=== PATIENT | female | born 1935 | race Caucasian/White ===

== ENCOUNTER → 2017-12-12 | Outpatient (CLI) | payer MEDICARE ==
[2016-04-02 09:41] VITALS: BP 140/59
[~2017-12-12] MED LIST: ALBU2.5V5 NEB; CELE200C PO; CHOL100014 PO; CLIN300C8 PO; CYAN100T PO; FURO-69 PO; MOME17SP NS; MULT-107 PO; REGADENOSON 0.4 MG/5 ML DISP.SYRIN. IV ONE; THYR60TA PO; VIT1CAPS12 PO
--- NOTE | 2017-12-12 12:20 | RAD ---
MR#: [id number] Date of Study: 12/12/2017 Ordering Physician: KIRK NGUYEN Referring Physician: JORGE SCHAFEFR Tech: APPROVED REPORT Test Type: Pharmacological Stress Nurse/Tech: Tiffani Ordoñez R.N. Test Indications: family hist. , SOB Cardiac History: Family history, Hypertension, TIA's Medications: See Electronic Medical Record Medical History: See Electronic Medical Record Resting ECG: NSR with RBBB Resting Heart Rate: 65 bpm Resting Blood Pressure: 140/69mmHg Pretest Chest Pain: No chest pain Nurse/Tech Notes S1S2, lungs sound clear Consent: The procedure was explained to the patient in lay terms. Informed consent was witnessed. Adam eout was entered into [employer]. History and Stress Test performed by Sheela ZieglerNAmmon Pharm. Details Pharmacologic stress testing was performed using 0.4mg per 5ml of regadenoson given intravenously ove r 7-10 seconds. Stress Symptoms Dyspnea POST EXERCISE Reason for Termination: Infusion complete Target HR: 119 Max HR: 82 bpm Max Blood Pressure: 145/67mmHg Blood Pressure response to exercise: Normal blood pressure response during stress. Chest Pain: No. Arrhythmia: No. ST Change: No. INTERPRETATION Stress EKG Conclusion: The resting EKG shows a sinus rhythm with a left anterior fascicular block and a right bundle branch block. The stress EKG showed no evidence of stressed induced ischemia or significant arrhythmias. No imaging was performed. Abnormal baseline EKG but no EKG evidence of stressed induced ischemia. Signed by : Dom Obregon MD Electronically Approved : 12/12/2017 12:19:45
== END | disposition home or self-care (01) ==
LOC: NM 11:58
PROVIDERS: ATTEND Family Medicine
DX: R06.02 Shortness of breath (principal); J44.9 Chronic obstructive pulmonary disease, unspecified; I10 Essential (primary) hypertension; Z88.8 Allergy status to other drugs, medicaments and biological substances; Z87.820 Personal history of traumatic brain injury; Z82.49 Family history of ischemic heart disease and other diseases of the circulatory system
CPT/HCPCS: 93017; J2785

== ENCOUNTER 2020-05-12 17:39 | Inpatient (IN) | payer MEDICARE ==
[~2020-05-12] VITALS: Ht 152.4 cm; Wt 76.6 kg
[2020-05-12 17:30] VITALS: BP 181/73
[~2020-05-12 17:39] MED LIST changes: -CLIN300C8 PO; +CLIN300C9 PO; -CYAN100T PO; +CYAN100T21 PO; -REGADENOSON 0.4 MG/5 ML DISP.SYRIN. IV ONE
[2020-05-12] MEDS ORDERED: BRIN8DRO OP (18:34)
[2020-05-12] MEDS ORDERED: DONE10TA7 PO (18:34)
[2020-05-12] MEDS ORDERED: LATA2.5D2 EACHEYE (18:34)
[2020-05-12 19:00] VITALS: BP 156/56
--- NOTE | 2020-05-12 20:39 | PDOC1 ---
History and Physical Date of Service: DOS: DATE: 05/12/20 TIME: 20:23 Chief Complaint: Chief Complain: Passing out History of Present Illness: HPI: Patient is a 84-year-old female with past medical history of asthma, dyslipidemia, hypothyroidism and remote history of TIA presents to the ED for possible stroke. Patient was transferred over from [place] [facility] for neuro evaluation patient stated that she just did not feel right and she felt a burst in her head and that she fell forward on her face. She states that she felt on the floor however she does not appear to have any contusions on her head. Patient does report LOC but was able to get up afterwards and she felt dizzy. Patient did complain of right-sided neck pain and arm pain and weakness. Does not have a headache. Patient also stated has pain on her right hip down to her leg. During my interview, I am completed by her daughter and son who both have DPOA. Son stated that in the past week patient has been moving a lot of furniture because she wants to keep the place clean and not be messy. Son believes this might have triggered the patient to be having muscle soreness and weakness. Patient is afraid of getting old and is obsessed with trying to stay young and healthy. Past Medical/Surgical History: PMH/PSH: Past medical history: Asthma, dyslipidemia, hypothyroidism, TIA Past surgical history: Cholecystectomy, hysterectomy Allergies: Allergies: Coded Allergies: Penicillins (Verified Allergy, Intermediate, 02/28/16) atorvastatin (Verified Allergy, Intermediate, 02/28/16) cephalexin (Verified Allergy, Intermediate, 02/28/16) ciprofloxacin (Verified Allergy, Intermediate, 02/28/16) clindamycin (Verified Allergy, Intermediate, 02/28/16) diazepam (Verified Allergy, Intermediate, 02/28/16) tramadol (Verified Allergy, Intermediate, 02/28/16) Family History: Family History: Reviewed with no relevant findings Social History: Social History: Denies alcohol, drug or tobacco abuse Current Medications: Current Medications Current Medications Aspirin (Ecotrin) 81 mg DAILYWBKFT PO ; Start 05/12/20 at 21:00 Enoxaparin Sodium (Lovenox 40mg Syringe) 40 mg Q24H SQ ; Start 05/12/20 at 21:00 Active Scripts Active Reported Xalatan (Latanoprost) 2.5 Ml Drops 1 Drop EACHEYE QHS Donepezil Hcl 10 Mg Tablet 1 Tab PO DAILY Simbrinza 1%-0.2% Eye Drops (Brinzolamide/Brimonid Tart) 8 Ml Drops.susp 8 Ml OP BID ROS: Review of Systems Review of System REVIEW OF SYSTEMS: GENERAL: Denies weakness SKIN: No bruising, hair changes or rashes. EYES: No blurred, double or loss of vision. NOSE AND THROAT: No history of nosebleeds, hoarseness or sore throat. HEART: No history of palpitations, chest pain or shortness of breath on exertion. LUNGS: Denies cough, hemoptysis, wheezing or shortness of breath. GASTROINTESTINAL: Denies changes in appetite, nausea, vomiting, diarrhea or constipation. GENITOURINARY: No history of frequency, urgency, hesitancy or nocturia. NEUROLOGIC: Denies history of numbness, tingling, or tremor. PSYCHIATRIC: No history of panic, anxiety or depression. ENDOCRINE: No history of heat or cold intolerance, polyuria or polydipsia. EXTREMITIES: Denies joint pain, pain on walking or stiffness. Physical Exam: Vital Signs: Vital Signs Date Time Temp Pulse Resp B/P (MAP) Pulse Ox O2 Delivery O2 Flow Rate FiO2 05/12/20 19:00 97.8 61 20 156/56 (89) 95 Room Air 97.8 Physcial Exam: GEN: No apparent distress. Alert and oriented HEENT: Normal cephalic, atraumatic, external auditory canals are patent EYES: Extraocular muscles are intact, pupil are equally round and reactive to light and accommodation MUSCULOSKELETAL: Well developed , well nourished, good range of motion ENDOCRINE: No thyromegaly was palpated LYMPHATICS: No cervical chain or axillary nodes were noted HEMATOPOIETIC: No bruising NECK: Supple, no JVD, no thyromegaly was noted LUNGS: Clear to auscultation in all lung kinney without rhonchi or wheezing HEART: RRR, S!, S2 present. Peripheral pulses intact, no obvious murmurs noted ABDOMEN: Soft, nontender. Positive bowel sounds, no organomegaly, normal bowel sounds EXTREMITIES: Without clubbing, cyanosis, or edema. Pedal pulses intact. Negative Homans sign NEUROLOGIC: Normal speech and tone. A&O x 3, moves all extremities, no obvious focal deficits PSYCHIATRIC: Normal affect, normal mood. Stable SKIN: No ulcerations or rashes, good skin turgor, no jaundice VASCULAR: Good capillary refill, neurovascular bundle appears to be intact Labs: Labs: Pending repeat labs Images: Images CT head was negative for any acute intracranial abnormalities CXR Impression: 1. No acute cardiopulmonary process. CTA of the head and neck Partially calcified atherosclerotic plaque involving the greater than left cavernous sinus and subarachnoid internal carotid arteries resulting in a 50 to 69% stenosis on the right and less than 50% stenosis on the left. There is also mild atherosclerotic plaque involving the carotid bifurcations with less than 50% stenosis. Partially calcified atherosclerotic plaque involving the origin and distal aspects of the right vertebral artery, resulting in 50 to 69% stenosis of the origin and less than 50% stenosis within its distal aspect No evidence of arterial occlusion or aneurysm. Multilevel degenerative changes involving the cervical spine there is no acute osseous finding. Assessment/Plan Assessment/Plan Acute TIA Bilateral carotid stenosis Onset of symptoms > 4.5 hours NIH 2 Admit to medicine for further workup Neuro consult Pending MRI brain, TTE continue telemonitoring for at least 24 hours contine IVF while NPO maintain normoglycemia with goals of 140-180 permissive HTN with goals between 140-180/90-105 for at least 24 hours if tPA administered, maintain BP goals < 180/105 for at least 24 hours continue ASA 81 daily within 48 hours continue high intensity statins, if tolerable pending PT/OT/speech Justifications for Admission Other Justification MONA VILLATORO MD May 12, 2020 20:39
[2020-05-12] MEDS: ASPIRIN ENTERIC COATED 81 MG TABLET.DR. PO SCH (20:41)
[2020-05-12] MEDS: ENOXAPARIN 40 MG/0.4 ML SYRINGE. SQ SCH (20:41)
[2020-05-12 23:00] VITALS: BP 139/51
[2020-05-13] VITALS (10 sets, daily range): BP systolic 131–166; BP diastolic 54–72
[2020-05-13] MEDS: ASPIRIN ENTERIC COATED 81 MG TABLET.DR. PO SCH (06:18)
[2020-05-13 06:31] LABS: BASO % 1 % (0-3); EOS # 0.1 x10^3/uL (0.0-0.7); EOS % 2 % (0-3); LYMPH # 1.7 x10^3/uL (1.0-4.8); LYMPH % 39 % (24-48); MEAN CORPUSCULAR HEMOGLOBIN 29 pg (25-35); MEAN CORPUSCULAR HGB CONC 33 g/dL (31-37); MEAN CORPUSCULAR VOLUME 89 fL (79-100); MONO # 0.4 x10^3/uL (0.0-1.1); MONO % 9 % (0-9); NEUT # 2.1 x10^3/uL (1.8-7.7); NEUT % 49 % (31-73); PLATELET COUNT 219 x10^3/uL (140-400); RED CELL DISTRIBUTION WIDTH 14.6 % (11.5-14.5); WHITE BLOOD COUNT 4.3 x10^3/uL (4.0-11.0)
[2020-05-13 06:54] LABS: ALBUMIN 3.3 g/dL (3.4-5.0); ALBUMIN/GLOBULIN RATIO 0.9 (1.0-1.7); CALCIUM 8.9 mg/dL (8.5-10.1); CREATININE 0.6 mg/dL (0.6-1.0); GFR 95.7; POTASSIUM 3.9 mmol/L (3.5-5.1); TOTAL BILIRUBIN 0.4 mg/dL (0.2-1.0)
--- NOTE | 2020-05-13 11:14 | PDOC ---
[facility] PROGRESS NOTE Date of Service DOS: DATE: 05/13/20 TIME: 11:07 Chief Complaint Chief Complaint Right side weakness Syncope History of Present Illness History of Present Illness 05/13/2020 Patient is seen and examined. Patient is able to sit comfortably. Discussed with her daughter about patient's condition. Her daughter wants the patient to try Statin even though patient has documented allergy with unknown reaction. Patient case's is discussed with RN and chart is review CT shows Partially calcified atherosclerotic plaque involving the greater than left cavernous sinus and subarachnoid internal carotid arteries resulting in a 50 to 69% stenosis on the right and less than 50% stenosis on the left. There is also mild atherosclerotic plaque involving the carotid bifurcations with less than 50% stenosis. Partially calcified atherosclerotic plaque involving the origin and distal aspects of the right vertebral artery, resulting in 50 to 69% stenosis of the origin and less than 50% stenosis within its distal aspect No evidence of arterial occlusion or aneurysm. Multilevel degenerative changes involving the cervical spine there is no acute osseous finding. Vitals/I&O Vitals/I&O: Vital Signs Date Time Temp Pulse Resp B/P (MAP) Pulse Ox O2 Delivery O2 Flow Rate FiO2 05/13/20 08:00 Room Air 05/13/20 07:00 98.7 60 20 149/58 (88) 94 98.7 I & O 05/12/20 05/12/20 05/13/20 15:00 23:00 07:00 Intake Total 200 ml Output Total 0 ml Balance 200 ml Physical Exam General: Alert, Oriented X3, Cooperative, mild distress, Other (Notice left face drooping) Heart: Regular rate, Normal S1, Normal S2 Lungs: Clear Abdomen: Normal bowel sounds Extremities: No clubbing Skin: No rashes Labs Labs: Laboratory Tests Test 05/13/20 06:13 White Blood Count 4.3 x10^3/uL (4.0-11.0) Red Blood Count 4.50 x10^6/uL (3.50-5.40) Hemoglobin 13.0 g/dL (12.0-15.5) Hematocrit 40.0 % (36.0-47.0) Mean Corpuscular Volume 89 fL (79-100) Mean Corpuscular Hemoglobin 29 pg (25-35) Mean Corpuscular Hemoglobin Concent 33 g/dL (31-37) Red Cell Distribution Width 14.6 % (11.5-14.5) Platelet Count 219 x10^3/uL (140-400) Neutrophils (%) (Auto) 49 % (31-73) Lymphocytes (%) (Auto) 39 % (24-48) Monocytes (%) (Auto) 9 % (0-9) Eosinophils (%) (Auto) 2 % (0-3) Basophils (%) (Auto) 1 % (0-3) Neutrophils # (Auto) 2.1 x10^3/uL (1.8-7.7) Lymphocytes # (Auto) 1.7 x10^3/uL (1.0-4.8) Monocytes # (Auto) 0.4 x10^3/uL (0.0-1.1) Eosinophils # (Auto) 0.1 x10^3/uL (0.0-0.7) Basophils # (Auto) 0.0 x10^3/uL (0.0-0.2) Sodium Level 140 mmol/L (136-145) Potassium Level 3.9 mmol/L (3.5-5.1) Chloride Level 103 mmol/L (98-107) Carbon Dioxide Level 30 mmol/L (21-32) Anion Gap 7 (6-14) Blood Urea Nitrogen 13 mg/dL (7-20) Creatinine 0.6 mg/dL (0.6-1.0) Estimated GFR (Cockcroft-Gault) 95.7 BUN/Creatinine Ratio 22 (6-20) Glucose Level 96 mg/dL (70-99) Calcium Level 8.9 mg/dL (8.5-10.1) Total Bilirubin 0.4 mg/dL (0.2-1.0) Aspartate Amino Transf (AST/SGOT) 14 U/L (15-37) Alanine Aminotransferase (ALT/SGPT) 17 U/L (14-59) Alkaline Phosphatase 64 U/L (46-116) Total Protein 7.0 g/dL (6.4-8.2) Albumin 3.3 g/dL (3.4-5.0) Albumin/Globulin Ratio 0.9 (1.0-1.7) Review of Systems Review of Systems: Patient has difficult speaking Patient complains right arm weakness Patient complains of headache Patient denies nausea or vomiting Assessment and Plan Assessmemt and Plan Assessment: Acute TIA Bilateral Carotid Stenosis Stroke Plan: 1) Awaiting MRI head today 2) Awaiting further Neurologist input 3) Continue speech therapy 4) Continue pvc monitor 5) Continue PT/OT 6) Continue DVT prophylaxis 7) Start patient on 10 mg SimvasStatin 8) Order SNU evaluation 9) Full code Comment Review of Relevant I have reviewed the following items [place] (where applicable) has been applied. Medications: Current Medications Medications (Trade) Dose Ordered Sig/Juhi Route PRN Reason Start Time Stop Time Status Last Admin Dose Admin Aspirin (Ecotrin) 81 mg DAILYWBKFT PO 05/12/20 21:00 05/13/20 06:18 Enoxaparin Sodium (Lovenox 40mg Syringe) 40 mg Q24H SQ 05/12/20 21:00 05/12/20 20:41 Justifications for Admission Other Justification MELISSA LAUREN III DO May 13, 2020 11:14
--- NOTE | 2020-05-13 11:21 | RAD ---
EXAM: Brain MRI without contrast. HISTORY: Right-sided weakness. Stroke. TECHNIQUE: Multiplanar, multisequence magnetic resonance imaging of the brain was performed without c ontrast. COMPARISON: 05/12/2020 FINDINGS: There is no restricted diffusion to suggest acute or subacute infarction. There is no susce ptibility effect to suggest hemorrhage. There is no mass effect or midline shift. There is no hydroce phalus. There is cerebral volume loss. There are scattered small focal and confluent areas of signal change w ithin the cerebral white matter, likely due to chronic small vessel disease in a patient of this age. There is evidence of lens surgery. There is a tiny left maxillary sinus mucous retention cyst. There is minimal right mastoid fluid. There are normal flow voids within the cerebral vessels. IMPRESSION: 1. No acute intracranial finding. 2. Bilateral cerebral white matter changes, likely due to chronic small vessel disease. 3. Cerebral volume loss. Electronically signed by: Ching Israel MD (05/13/2020 11:19 AM) [id number]
[2020-05-13] MEDS: ACETAMINOPHEN 325 MG TABLET. PO PRN ×2 (12:55→20:37)
--- NOTE | 2020-05-13 13:57 | PDOC2 ---
NEUROLOGY CONSULT Date of Service DOS: DATE: 05/13/20 TIME: 13:52 Reason for Consult Reason for Consult: Possible stroke Referring Physician Referring Physician: Dr. Lozano Source Source: Chart review, Patient History of Present Illness History of Present Illness The patient is an 84-year-old right-handed female who lives alone, presented to the [facility] emergency department as code stroke. She fell and hit her head, does not think she was knocked out. She does not know why she fell, though. She has had a feeling of a burst in her head, dizziness, headache, and trouble moving the right side. There is no prior history of stroke or seizure, but she says that she has had a mini stroke in the past. On closer questioning, she describes a dizzy spell. There is no history of full-blown stroke, seizure, or other significant head injury. Patient has noticed some memory loss over the last several years. She has some trouble walking. In the [facility] emergency department, [facility] transfer center was consulted, they did not think she needed a transfer to their facility. Past Medical History Cardiovascular: Hyperlipidemia Pulmonary: Asthma CENTRAL NERVOUS SYSTEM: TIA (?) GI: GERD Endocrine: Hypothyroidism Past Surgical History Past Surgical History: Cholecystectomy, Hysterectomy Family History Family History: CVA Social History Social History , lives alone, rare alcohol, no tobacco Current Medications Current Medications Current Medications Aspirin (Ecotrin) 81 mg DAILYWBKFT PO Last administered on 05/13/20at 06:18; Start 05/12/20 at 21:00 Enoxaparin Sodium (Lovenox 40mg Syringe) 40 mg Q24H SQ Last administered on 05/12/20at 20:41; Start 05/12/20 at 21:00 Acetaminophen (Tylenol) 325 mg Q4HRS PRN PO MILD PAIN / TEMP > 100.3'F Last administered on 05/13/20at 12:55; Start 05/13/20 at 09:15 Simvastatin (Zocor) 5 mg QHS PO ; Start 05/13/20 at 21:00 Active Scripts Active Reported Xalatan (Latanoprost) 2.5 Ml Drops 1 Drop EACHEYE QHS Donepezil Hcl 10 Mg Tablet 1 Tab PO DAILY Simbrinza 1%-0.2% Eye Drops (Brinzolamide/Brimonid Tart) 8 Ml Drops.susp 8 Ml OP BID Allergies Allergies: Coded Allergies: Penicillins (Verified Allergy, Intermediate, 02/28/16) atorvastatin (Verified Allergy, Intermediate, 02/28/16) cephalexin (Verified Allergy, Intermediate, 02/28/16) ciprofloxacin (Verified Allergy, Intermediate, 02/28/16) clindamycin (Verified Allergy, Intermediate, 02/28/16) diazepam (Verified Allergy, Intermediate, 02/28/16) tramadol (Verified Allergy, Intermediate, 02/28/16) ROS Review of System Negative for fever, chills, weight loss, shortness of breath, chest pain, indigestion, hematochezia, melena, and dysuria. Full 14-point review of systems is negative. Physical Exam Physical Examination General: Well-developed, well-nourished white female in no acute distress HEENT: Normocephalic, some facial ecchymoses. Temporal arteriespulsatile and nontender. Neck: Supple without bruit, no meningismus Musculoskeletal: Stability:see neurologic. Gait exam:see neurologic. Tone:see neurologic.Strength:see neurologic. Neurological: Mental Status:intact, orientation, memory, attention span/concentration, language, fund of knowledge normal. Cranial Nerves:Pupils equal and reactive to light, extraocular movements areintact, visual kinney are full to confrontation. Facial sensation is normal. There is no facial asymmetry. Vestibulo-ocular reflex is intact. Palate elevates and tongue protrudes in midline. All other cranial related problems are negative except as mentioned before.Reflexes:1+ and symmetric with flexor plantar responses. Motor:She is able to develop 5/5 strength with normal tone and bulk, but is splinting the right shoulder and right hip due to pain. Coordination:Finger-nose finger and [id number] testing are normal. Rapid alternating movements and fine finger movements are intact. Gait:Arthritic. Sensory:Normal pinprick, vibration, light touch, proprioception. Vitals VITALS Vital Signs Date Time Temp Pulse Resp B/P (MAP) Pulse Ox O2 Delivery O2 Flow Rate FiO2 05/13/20 11:00 97.8 55 20 144/54 (84) 93 Room Air 97.8 Labs Labs Laboratory Tests Test 05/13/20 06:13 White Blood Count 4.3 x10^3/uL (4.0-11.0) Red Blood Count 4.50 x10^6/uL (3.50-5.40) Hemoglobin 13.0 g/dL (12.0-15.5) Hematocrit 40.0 % (36.0-47.0) Mean Corpuscular Volume 89 fL (79-100) Mean Corpuscular Hemoglobin 29 pg (25-35) Mean Corpuscular Hemoglobin Concent 33 g/dL (31-37) Red Cell Distribution Width 14.6 % (11.5-14.5) Platelet Count 219 x10^3/uL (140-400) Neutrophils (%) (Auto) 49 % (31-73) Lymphocytes (%) (Auto) 39 % (24-48) Monocytes (%) (Auto) 9 % (0-9) Eosinophils (%) (Auto) 2 % (0-3) Basophils (%) (Auto) 1 % (0-3) Neutrophils # (Auto) 2.1 x10^3/uL (1.8-7.7) Lymphocytes # (Auto) 1.7 x10^3/uL (1.0-4.8) Monocytes # (Auto) 0.4 x10^3/uL (0.0-1.1) Eosinophils # (Auto) 0.1 x10^3/uL (0.0-0.7) Basophils # (Auto) 0.0 x10^3/uL (0.0-0.2) Sodium Level 140 mmol/L (136-145) Potassium Level 3.9 mmol/L (3.5-5.1) Chloride Level 103 mmol/L (98-107) Carbon Dioxide Level 30 mmol/L (21-32) Anion Gap 7 (6-14) Blood Urea Nitrogen 13 mg/dL (7-20) Creatinine 0.6 mg/dL (0.6-1.0) Estimated GFR (Cockcroft-Gault) 95.7 BUN/Creatinine Ratio 22 (6-20) Glucose Level 96 mg/dL (70-99) Calcium Level 8.9 mg/dL (8.5-10.1) Total Bilirubin 0.4 mg/dL (0.2-1.0) Aspartate Amino Transf (AST/SGOT) 14 U/L (15-37) Alanine Aminotransferase (ALT/SGPT) 17 U/L (14-59) Alkaline Phosphatase 64 U/L (46-116) Total Protein 7.0 g/dL (6.4-8.2) Albumin 3.3 g/dL (3.4-5.0) Albumin/Globulin Ratio 0.9 (1.0-1.7) Laboratory Tests Test 05/13/20 06:13 White Blood Count 4.3 x10^3/uL (4.0-11.0) Red Blood Count 4.50 x10^6/uL (3.50-5.40) Hemoglobin 13.0 g/dL (12.0-15.5) Hematocrit 40.0 % (36.0-47.0) Mean Corpuscular Volume 89 fL (79-100) Mean Corpuscular Hemoglobin 29 pg (25-35) Mean Corpuscular Hemoglobin Concent 33 g/dL (31-37) Red Cell Distribution Width 14.6 % (11.5-14.5) Platelet Count 219 x10^3/uL (140-400) Neutrophils (%) (Auto) 49 % (31-73) Lymphocytes (%) (Auto) 39 % (24-48) Monocytes (%) (Auto) 9 % (0-9) Eosinophils (%) (Auto) 2 % (0-3) Basophils (%) (Auto) 1 % (0-3) Neutrophils # (Auto) 2.1 x10^3/uL (1.8-7.7) Lymphocytes # (Auto) 1.7 x10^3/uL (1.0-4.8) Monocytes # (Auto) 0.4 x10^3/uL (0.0-1.1) Eosinophils # (Auto) 0.1 x10^3/uL (0.0-0.7) Basophils # (Auto) 0.0 x10^3/uL (0.0-0.2) Sodium Level 140 mmol/L (136-145) Potassium Level 3.9 mmol/L (3.5-5.1) Chloride Level 103 mmol/L (98-107) Carbon Dioxide Level 30 mmol/L (21-32) Anion Gap 7 (6-14) Blood Urea Nitrogen 13 mg/dL (7-20) Creatinine 0.6 mg/dL (0.6-1.0) Estimated GFR (Cockcroft-Gault) 95.7 BUN/Creatinine Ratio 22 (6-20) Glucose Level 96 mg/dL (70-99) Calcium Level 8.9 mg/dL (8.5-10.1) Total Bilirubin 0.4 mg/dL (0.2-1.0) Aspartate Amino Transf (AST/SGOT) 14 U/L (15-37) Alanine Aminotransferase (ALT/SGPT) 17 U/L (14-59) Alkaline Phosphatase 64 U/L (46-116) Total Protein 7.0 g/dL (6.4-8.2) Albumin 3.3 g/dL (3.4-5.0) Albumin/Globulin Ratio 0.9 (1.0-1.7) Images Images Brain MRI without contrast. HISTORY: Right-sided weakness. Stroke. TECHNIQUE: Multiplanar, multisequence magnetic resonance imaging of the brain was performed without contrast. COMPARISON: 05/12/2020 FINDINGS: There is no restricted diffusion to suggest acute or subacute infarction. There is no susceptibility effect to suggest hemorrhage. There is no mass effect or midline shift. There is no hydrocephalus. There is cerebral volume loss. There are scattered small focal and confluent areas of signal change within the cerebral white matter, likely due to chronic small vessel disease in a patient of this age. There is evidence of lens surgery. There is a tiny left maxillary sinus mucous retention cyst. There is minimal right mastoid fluid. There are normal flow voids within the cerebral vessels. IMPRESSION: 1. No acute intracranial finding. 2. Bilateral cerebral white matter changes, likely due to chronic small vessel disease. 3. Cerebral volume loss. CT ANGIOGRAPHY HEAD AND NECK EXAM: Head angiogram of the head and neck with intravenous contrast; cervical spine CT without contrast. HISTORY: Neck pain. TECHNIQUE: Computed tomographic images of the head and neck were obtained following the administration of contrast and noncontrast images of the cervical spine were obtained. 3-dimensional maximum intensity projection images were obtained. *One or more of the following individualized dose reduction techniques were utilized for this examination: 1. Automated exposure control. 2. Adjustment of the mA and/or kV according to patient size. 3. Use of iterative reconstruction technique. COMPARISON: None. FINDINGS: The visualized aortic arch is normal in caliber. There is calcified atherosclerotic plaque involving the aortic arch and arch great vessels. The origins of the innominate and left common carotid arteries are excluded from the [id number]. There is no significant stenosis at the origin of the right subclavian or common carotid artery or left subclavian artery. There is calcified atherosclerotic plaque at the origin of the right vertebral artery, with 50-69 percent stenosis. There is calcified atherosclerotic plaque within the distal right vertebral artery resulting in 50 percent stenosis and slight relative decreased caliber of the right vertebral artery extending to the basilar artery. The vertebral arteries are otherwise codominant and widely patent. There is calcified atherosclerotic plaque involving the right carotid bulb and origin of the right internal carotid artery, with less than 25 percent stenosis. There is minimal calcified plaque at the left carotid bulb and origin of the left internal carotid artery, without stenosis. There is calcified atherosclerotic plaque within the cavernous and supraclinoid internal carotid arteries. This results in less than 50 percent stenosis on the left and 50-69 percent stenosis on the right. The basilar artery is widely patent. The posterior communicating arteries are likely developmentally absent. There is a tiny communicating artery. There is no aneurysm. There is no vascular malformation. There is no suspicious enhancing lesion. There is mild cerebral atrophy. There is decreased attenuation within the cerebral white matter, most commonly due to chronic small vessel disease in patients of this age. There is evidence of lens surgery. There is a small left maxillary sinus mucous retention cyst. The mastoid air cells are clear. The parotid and submandibular glands are unremarkable. There is a small calcification along the anterior aspect of the right thyroid gland. No thyroid nodule is seen. There is no neck lymphadenopathy. The airways midline and mildly patent. The lung apices are unremarkable. There is minimal anterolisthesis of C3 on C4 and C4 on C5. There is degenerative endplate remodeling throughout the cervical and visualized thoracic spine, primarily at C6-C7. There is disc space narrowing, vacuum phenomenon and Schmorl's node formation at this level. There is multilevel facet arthropathy. The right facet joints at C2-C3 are fused. There is no fracture or suspicious osseous lesion. At C2-C3, there is mild right facet arthropathy. There is no stenosis. At C3-C4, there is a shallow posterior central to left paracentral disc protrusion. There is moderate right greater than left facet arthropathy. There is no stenosis. At C4-C5, there is a disc bulge. There is severe right and moderate left facet arthropathy. There is no stenosis. At C5-C6, there is a disc bulge and endplate remodeling. There is severe right and moderate left facet arthropathy. There is left uncovertebral arthropathy. There is no stenosis. At C6-C7, there is a disc bulge and endplate osteophytosis. There is mild bilateral facet arthropathy. There is uncovertebral arthropathy. There is no stenosis. IMPRESSION: 1. Partially calcified atherosclerotic plaque involving the greater than left cavernous and supraclinoid internal carotid arteries, resulting in 50-69 percent stenosis on the right and less than 50 percent stenosis on the left. There is also mild atherosclerotic plaque involving the carotid bifurcations with less than 50 percent stenosis. 2. Partially calcified atherosclerotic plaque involving the origin and distal aspects of the right vertebral artery, resulting in 50-69 percent stenosis of the origin and less than 50 percent stenosis within its distal aspect. 3. No evidence of arterial occlusion or aneurysm. 4. Multilevel degenerative change involving the cervical spine, described above. There is no acute osseous finding. CT scan of the head without contrast 05/12/20 Clinical History: Headache. Right sided pain. Code stroke. Technique: Unenhanced, contiguous, 5 mm axial sections were obtained through the head. One or more of the following individualized dose reduction techniques were util ized for this study: 1. Automated exposure control. 2. Adjustment of the mA and/or kV according to patient size. 3. Use of iterative reconstruction technique. Findings: There is generalized parenchymal atrophy. Areas of decreased attenuation are seen within the periventricular and subcortical white matter of both cerebral hemispheres consistent with areas of small vessel ischemic disease. No acute parenchymal abnormality is seen. No extra-axial fluid collection is noted. No skull fracture is seen. Impression: No acute intracranial abnormality is seen. 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 ZULEIMA PERRY MD May 13, 2020 13:57
--- NOTE | 2020-05-13 14:35 | RAD ---
EXAM: Right shoulder, 3 views; pelvis and right hip, 2 views. HISTORY: Pain. COMPARISON: None. FINDINGS: Right shoulder: 3 views of the right shoulder obtained. The exam is limited due to image projection a nd limited range of motion. There is no acute fracture, dislocation or subluxation. There is decrease d subacromial space which may be projectional. Pelvis and right hip: A frontal view the pelvis and 2 views of the right hip are obtained. There is n o fracture, dislocation or subluxation. IMPRESSION: 1. Limited evaluation of the right shoulder due to image projection and limited range of motion. Ther e is no convincing acute fracture. 2. No acute finding involving the pelvis and right hip. Electronically signed by: Ching Israel MD (05/13/2020 2:33 PM) [id number]
[2020-05-13] MEDS: ENOXAPARIN 40 MG/0.4 ML SYRINGE. SQ SCH (20:38)
[2020-05-13] MEDS ORDERED: SIMVASTATIN 10 MG TABLET PO SCH (21:00)
[2020-05-14 03:00] VITALS: BP 164/63
[2020-05-14 07:00] VITALS: BP 141/57
[2020-05-14] MEDS: ASPIRIN ENTERIC COATED 81 MG TABLET.DR. PO SCH (08:25)
[2020-05-14] MEDS: DONEPEZIL HCL 10 MG TABLET. PO SCH (08:25)
[2020-05-14] MEDS: ACETAMINOPHEN 325 MG TABLET. PO PRN (10:15)
[2020-05-14 11:00] VITALS: BP 146/56
--- NOTE | 2020-05-14 11:19 | PDOC ---
[facility] PROGRESS NOTE Date of Service DOS: DATE: 05/14/20 TIME: 11:17 Chief Complaint Chief Complaint Right side weakness Syncope History of Present Illness History of Present Illness 05/13/2020 Patient is seen and examined. Patient is able to sit comfortably. Discussed with her daughter about patient's condition. Her daughter wants the patient to try Statin even though patient has documented allergy with unknown reaction. Patient case's is discussed with RN and chart is review CT shows Partially calcified atherosclerotic plaque involving the greater than left cavernous sinus and subarachnoid internal carotid arteries resulting in a 50 to 69% stenosis on the right and less than 50% stenosis on the left. There is also mild atherosclerotic plaque involving the carotid bifurcations with less than 50% stenosis. Partially calcified atherosclerotic plaque involving the origin and distal aspects of the right vertebral artery, resulting in 50 to 69% stenosis of the origin and less than 50% stenosis within its distal aspect No evidence of arterial occlusion or aneurysm. Multilevel degenerative changes involving the cervical spine there is no acute osseous finding. 05/14/2020 Patient is seen and examined with her daughter in the room Patient is comfortable Patient's case is discussed with RN MRI finding 1. No acute intracranial finding. 2. Bilateral cerebral white matter changes, likely due to chronic small vessel disease. 3. Cerebral volume loss. Vitals/I&O Vitals/I&O: Vital Signs Date Time Temp Pulse Resp B/P (MAP) Pulse Ox O2 Delivery O2 Flow Rate FiO2 05/14/20 07:00 98.7 57 20 141/57 (85) 95 Room Air 98.7 I & O 05/13/20 05/13/20 05/14/20 15:00 23:00 07:00 Intake Total 600 ml 700 ml 500 ml Balance 600 ml 700 ml 500 ml Physical Exam General: Alert, Oriented X3, Cooperative, mild distress, Other (Notice left face drooping) Heart: Regular rate, Normal S1, Normal S2 Lungs: Clear, Other (No wheezes or crackles) Abdomen: Normal bowel sounds, No tenderness Extremities: No clubbing, No cyanosis Skin: No rashes, No significant lesion Review of Systems Review of Systems: Affirms headache, improved from yesterday Denies nausea or vomiting Assessment and Plan Assessmemt and Plan Assessment: 1. Fall with concussion per neurologist 2. Acute TIA 3. Bilateral Carotid Stenosis 4. Stroke Plan: 1. Continue PT/OT 2. Continue speech therapy 3. Continue cardiac monitoring 4. DVT prophylaxis 5. Full code 6. Appreciate neurology input 7. Continue home meds Comment Review of Relevant I have reviewed the following items [place] (where applicable) has been applied. Medications: Current Medications Medications (Trade) Dose Ordered Sig/Juhi Route PRN Reason Start Time Stop Time Status Last Admin Dose Admin Simvastatin (Zocor) 5 mg QHS PO 05/13/20 21:00 05/13/20 20:37 Donepezil HCl (Aricept) 10 mg DAILY PO 05/14/20 09:00 05/14/20 08:25 Justifications for Admission Other Justification MELISSA LAUREN III DO May 14, 2020 11:19
[2020-05-14] MEDS: amLODIPine BESYLATE 5 MG TABLET PO SCH (12:04)
--- NOTE | 2020-05-14 13:02 | PDOC ---
PROGRESS NOTES Date of Service DATE: 05/14/20 TIME: 12:59 Assessment No stroke, transient ischemic attack, nor "mini stroke." She just fell, we do not know for sure why Fall with concussion Right shoulder and hip pain causing pseudo right hemiparesis, x-rays negative Atherosclerotic disease of both carotid arteries, right vertebral, intracranially, not surgically significant Cervical spine multilevel degenerative change, not a surgery candidate Plan Physiatry consult Rehabilitation modalities Aspirin Rechallenge with statin, she has been intolerant in the past Will need SNU Discussed with daughter Subjective Pain is better Objective Vital Signs Date Time Temp Pulse Resp B/P (MAP) Pulse Ox O2 Delivery O2 Flow Rate FiO2 05/14/20 12:04 80 05/14/20 11:00 98.0 20 146/56 (86) 96 Room Air 98.0 Intake and Output 05/14/20 07:00 Intake Total 1800 ml Balance 1800 ml Intake Oral 1800 ml # Voids 7 PHYSICAL EXAM Alert. Oriented to time, place and person. PERRL. EOMI. CN: no focal findings. Muscle tone: normal. Muscle strength: Giveaway weakness due to pain in right hip and shoulder, limited right shoulder range of motion DTR: 1+ Plantar reflex: Flexor Gait: not examined in bed. Sensory exam: no abnormal findings. No cerebellar signs elicited. Review of Relevant I have reviewed the following items [place] (where applicable) has been applied. Labs Laboratory Tests Test 05/13/20 06:13 White Blood Count 4.3 x10^3/uL (4.0-11.0) Red Blood Count 4.50 x10^6/uL (3.50-5.40) Hemoglobin 13.0 g/dL (12.0-15.5) Hematocrit 40.0 % (36.0-47.0) Mean Corpuscular Volume 89 fL (79-100) Mean Corpuscular Hemoglobin 29 pg (25-35) Mean Corpuscular Hemoglobin Concent 33 g/dL (31-37) Red Cell Distribution Width 14.6 % (11.5-14.5) Platelet Count 219 x10^3/uL (140-400) Neutrophils (%) (Auto) 49 % (31-73) Lymphocytes (%) (Auto) 39 % (24-48) Monocytes (%) (Auto) 9 % (0-9) Eosinophils (%) (Auto) 2 % (0-3) Basophils (%) (Auto) 1 % (0-3) Neutrophils # (Auto) 2.1 x10^3/uL (1.8-7.7) Lymphocytes # (Auto) 1.7 x10^3/uL (1.0-4.8) Monocytes # (Auto) 0.4 x10^3/uL (0.0-1.1) Eosinophils # (Auto) 0.1 x10^3/uL (0.0-0.7) Basophils # (Auto) 0.0 x10^3/uL (0.0-0.2) Sodium Level 140 mmol/L (136-145) Potassium Level 3.9 mmol/L (3.5-5.1) Chloride Level 103 mmol/L (98-107) Carbon Dioxide Level 30 mmol/L (21-32) Anion Gap 7 (6-14) Blood Urea Nitrogen 13 mg/dL (7-20) Creatinine 0.6 mg/dL (0.6-1.0) Estimated GFR (Cockcroft-Gault) 95.7 BUN/Creatinine Ratio 22 (6-20) Glucose Level 96 mg/dL (70-99) Calcium Level 8.9 mg/dL (8.5-10.1) Total Bilirubin 0.4 mg/dL (0.2-1.0) Aspartate Amino Transf (AST/SGOT) 14 U/L (15-37) Alanine Aminotransferase (ALT/SGPT) 17 U/L (14-59) Alkaline Phosphatase 64 U/L (46-116) Total Protein 7.0 g/dL (6.4-8.2) Albumin 3.3 g/dL (3.4-5.0) Albumin/Globulin Ratio 0.9 (1.0-1.7) Medications Current Medications Aspirin (Ecotrin) 81 mg DAILYWBKFT PO Last administered on 05/14/20at 08:25; Start 05/12/20 at 21:00 Enoxaparin Sodium (Lovenox 40mg Syringe) 40 mg Q24H SQ Last administered on 05/13/20at 20:38; Start 05/12/20 at 21:00 Acetaminophen (Tylenol) 325 mg Q4HRS PRN PO MILD PAIN / TEMP > 100.3'F Last administered on 05/14/20at 10:15; Start 05/13/20 at 09:15 Simvastatin (Zocor) 5 mg QHS PO Last administered on 05/13/20at 20:37; Start 05/13/20 at 21:00 Donepezil HCl (Aricept) 10 mg DAILY PO Last administered on 05/14/20at 08:25; Start 05/14/20 at 09:00 Amlodipine Besylate (Norvasc) 2.5 mg DAILY PO Last administered on 05/14/20at 12:04; Start 05/14/20 at 12:30 Active Scripts Active Reported Xalatan (Latanoprost) 2.5 Ml Drops 1 Drop EACHEYE QHS Donepezil Hcl 10 Mg Tablet 1 Tab PO DAILY Simbrinza 1%-0.2% Eye Drops (Brinzolamide/Brimonid Tart) 8 Ml Drops.susp 8 Ml OP BID Vitals/I & O Vital Sign - Last 24 Hours 05/13/20 05/13/20 05/13/20 05/13/20 15:00 17:55 18:00 18:05 Temp 98.6 98.6 Pulse 65 71 71 84 Resp 18 B/P (MAP) 143/59 (87) 166/61 (96) 165/62 (96) 165/72 (103) Pulse Ox 96 O2 Delivery Room Air 05/13/20 05/13/20 05/13/20 05/13/20 18:10 19:00 19:45 22:42 Temp 97.7 97.5 97.7 97.5 Pulse 72 63 63 Resp 18 18 B/P (MAP) 157/64 (95) 155/61 (92) 162/65 (97) Pulse Ox 99 96 O2 Delivery Room Air Room Air Room Air 05/14/20 05/14/20 05/14/20 05/14/20 03:00 07:00 08:00 11:00 Temp 97.7 98.7 98.0 97.7 98.7 98.0 Pulse 62 57 62 Resp 17 20 20 B/P (MAP) 164/63 (96) 141/57 (85) 146/56 (86) Pulse Ox 96 95 96 O2 Delivery Room Air Room Air Room Air Room Air 05/14/20 12:04 Pulse 80 Intake and Output 05/13/20 05/13/20 05/14/20 15:00 23:00 07:00 Intake Total 600 ml 700 ml 500 ml Balance 600 ml 700 ml 500 ml Images EXAM: Right shoulder, 3 views; pelvis and right hip, 2 views. HISTORY: Pain. COMPARISON: None. FINDINGS: Right shoulder: 3 views of the right shoulder obtained. The exam is limited due to image projection and limited range of motion. There is no acute fracture, dislocation or subluxation. There is decreased subacromial space which may be projectional. Pelvis and right hip: A frontal view the pelvis and 2 views of the right hip are obtained. There is no fracture, dislocation or subluxation. IMPRESSION: 1. Limited evaluation of the right shoulder due to image projection and limited range of motion. There is no convincing acute fracture. 2. No acute finding involving the pelvis and right hip. Justicifation of Admission Dx: Justifications for Admission: Justification of Admission Dx: N/A ZULEIMA PERRY MD May 14, 2020 13:02
[2020-05-14 15:00] VITALS: BP 153/53
[2020-05-14 19:00] VITALS: BP 114/66
[2020-05-14] MEDS: ENOXAPARIN 40 MG/0.4 ML SYRINGE. SQ SCH (20:52)
[2020-05-14] MEDS: SIMVASTATIN 10 MG TABLET PO SCH (20:52)
[2020-05-14 23:00] VITALS: BP 133/58
[2020-05-15 03:00] VITALS: BP 154/64
[2020-05-15] MEDS: ACETAMINOPHEN 325 MG TABLET. PO PRN ×2 (06:59→11:43)
[2020-05-15 07:00] VITALS: BP 162/72
--- NOTE | 2020-05-15 10:02 | RAD ---
Examination: Right Lower Extremity Venous Doppler Ultrasound History: Right leg pain Comparison: None Procedure: Zayas scale, color flow 2D and spectal waveform analysis images are obtained with and witho ut compression in the area of the common femoral vein, superficial femoral vein - femoral vein juncti on, main femoral vein (superficial femoral vein) and popliteal vein. Veins of the proximal calf are a lso imaged. Findings: There is normal duplex flow, color flow and compressibility of all visualized vein segments. No evide nce of deep venous thrombus is present. Impression: No evidence of DVT in the right lower extremity venous system. Electronically signed by: Peter Augustin MD (05/15/2020 10:00 AM) [id number]
--- NOTE | 2020-05-15 10:05 | PDOC ---
PROGRESS NOTES Date of Service DATE: 05/15/20 TIME: 10:04 Assessment No stroke, transient ischemic attack, nor "mini stroke." She just fell, we do not know for sure why Fall with concussion Right shoulder and hip pain causing pseudo right hemiparesis, x-rays negative Atherosclerotic disease of both carotid arteries, right vertebral, intracranially, not surgically significant Cervical spine multilevel degenerative change, not a surgery candidate Superficial thrombophlebitis Plan Management of thrombophlebitis per internal medicine Physiatry consult Rehabilitation modalities Aspirin Rechallenge with statin, she has been intolerant in the past Will need SNU Subjective Complains of swelling on the right morales, has had this before, thrombophlebitis, has had vein stripping Objective Vital Signs Date Time Temp Pulse Resp B/P (MAP) Pulse Ox O2 Delivery O2 Flow Rate FiO2 05/15/20 07:30 Room Air 05/15/20 07:00 97.6 57 20 162/72 (102) 95 97.6 Intake and Output 05/15/20 07:00 Intake Total 1300 ml Output Total 300 ml Balance 1000 ml Intake Oral 1300 ml Output Urine Total 300 ml # Voids 4 PHYSICAL EXAM Alert. Oriented to time, place and person. PERRL. EOMI. CN: no focal findings. Muscle tone: normal. Muscle strength: Giveaway weakness due to pain in right hip and shoulder, limited right shoulder range of motion DTR: 1+ Plantar reflex: Flexor Gait: not examined in bed. Sensory exam: no abnormal findings. No cerebellar signs elicited. Superficial swelling, right morales Review of Relevant I have reviewed the following items [place] (where applicable) has been applied. Medications Current Medications Aspirin (Ecotrin) 81 mg DAILYWBKFT PO Last administered on 05/14/20at 08:25; Start 05/12/20 at 21:00 Enoxaparin Sodium (Lovenox 40mg Syringe) 40 mg Q24H SQ Last administered on 05/14/20at 20:52; Start 05/12/20 at 21:00 Acetaminophen (Tylenol) 325 mg Q4HRS PRN PO MILD PAIN / TEMP > 100.3'F Last administered on 05/15/20at 06:59; Start 05/13/20 at 09:15 Simvastatin (Zocor) 5 mg QHS PO Last administered on 05/13/20at 20:37; Start 05/13/20 at 21:00; Stop 05/14/20 at 13:32; Status DC Donepezil HCl (Aricept) 10 mg DAILY PO Last administered on 05/14/20at 08:25; Start 05/14/20 at 09:00 Amlodipine Besylate (Norvasc) 2.5 mg DAILY PO Last administered on 05/14/20at 12:04; Start 05/14/20 at 12:30 Simvastatin (Zocor) 10 mg QHS PO Last administered on 05/14/20at 20:52; Start 05/14/20 at 21:00 Active Scripts Active Reported Xalatan (Latanoprost) 2.5 Ml Drops 1 Drop EACHEYE QHS Donepezil Hcl 10 Mg Tablet 1 Tab PO DAILY Simbrinza 1%-0.2% Eye Drops (Brinzolamide/Brimonid Tart) 8 Ml Drops.susp 8 Ml OP BID Vitals/I & O Vital Sign - Last 24 Hours 05/14/20 05/14/20 05/14/20 05/14/20 11:00 12:04 15:00 19:00 Temp 98.0 97.9 97.6 98.0 97.9 97.6 Pulse 62 80 69 75 Resp 20 20 20 B/P (MAP) 146/56 (86) 153/53 (86) 114/66 (82) Pulse Ox 96 94 95 O2 Delivery Room Air Room Air Room Air 05/14/20 05/14/20 05/15/20 05/15/20 19:10 23:00 03:00 07:00 Temp 98.1 97.8 97.6 98.1 97.8 97.6 Pulse 63 66 57 Resp 18 19 20 B/P (MAP) 133/58 (83) 154/64 (94) 162/72 (102) Pulse Ox 96 95 95 O2 Delivery Room Air Room Air Room Air Room Air 05/15/20 07:30 O2 Delivery Room Air Intake and Output 05/14/20 05/14/20 05/15/20 15:00 23:00 07:00 Intake Total 550 ml 250 ml 500 ml Output Total 300 ml Balance 550 ml 250 ml 200 ml Justicifation of Admission Dx: Justifications for Admission: Justification of Admission Dx: N/A ZULEIMA PERRY MD May 15, 2020 10:05
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
[2020-05-15 10:58] VITALS: BP 154/65
--- NOTE | 2020-05-15 11:21 | NUR ---
SS following for discharge planning. SS reviewed pt chart and discussed with pt RN. Pt is from home alone and is currently on room air. PT recommended acute rehabilitation. COVID19 test ordered and pt being swabbed today. SS met with pt and pt's daughter in room to discuss discharge planning and acute rehabilitation. Pt and pt's daughter reported that they wanted pt to go to [facility], ; fax [phone]. They reported that pt has a daughter and granddaughter that work at facility and pt would be able to see family daily. SS phoned and faxed referral as requested. SS will continue to follow for discharge planning.
[2020-05-15] MEDS ORDERED: AMLO-186 PO (11:29)
[2020-05-15] MEDS ORDERED: MECL12.582 PO (11:29)
[2020-05-15] MEDS ORDERED: ASPI-886 PO (11:29)
[2020-05-15] MEDS ORDERED: SIMV10TA15 PO (11:29)
[2020-05-15] MEDS ORDERED: ACET325T21 PO (11:29)
--- NOTE | 2020-05-15 11:30 | SNU/HH DC ---
DISCHARGE ORDERS DISCHARGE INFORMATION: CONDITION ON DISCHARGE: Stable CODE STATUS: Code Status: Full ALF: SNF STAY <30 DAYS: Yes HOSPICE: HOSPICE: No HOSPICE EVAL & TREAT: No LTAC: ADMIT TO LTAC: No POST DISCHARGE ORDERS: ACTIVITY ORDERS: Other ROM activity (Activity as per physical therapy recommendations) WEIGHT BEARING STATUS: Full weight bearing DIET AFTER DISCHARGE: Cardiac TREATMENT/EQUIPMENT ORDERS: Physical Therapy For: Evalulation/Treatment Occupational Therapy For: Evaluation/Treatment Speech Language Pathology For: Evaluation/Treatment DISCHARGE MEDICATIONS: Home Meds Active Scripts Acetaminophen (ACETAMINOPHEN) 325 Mg Tablet, 325 MG PO Q4HRS PRN for MILD PAIN / TEMP > 100.3'F for 30 Days, #180 TAB Prov:CASTLE,NIAL K III DO 05/15/20 Meclizine Hcl (MECLIZINE HCL) 12.5 Mg Tablet, 12.5 MG PO PRN Q6HRS PRN for DIZZINESS for 90 Days, #90 TAB Prov:CASTLE,NIAL K III DO 05/15/20 Aspirin (ASPIRIN EC) 81 Mg Tablet.dr, 81 MG PO DAILYWBKFT for tia, #90 TAB.SR Prov:CASTLE,NIAL K III DO 05/15/20 Amlodipine Besylate (AMLODIPINE BESYLATE) 5 Mg Tablet, 2.5 MG PO DAILY for htn for 90 Days, #45 TAB Prov:CASTLE,NIAL K III DO 05/15/20 Simvastatin (SIMVASTATIN) 10 Mg Tablet, 10 MG PO QHS for tia for 90 Days, #90 TAB Prov:CASTLE,NIAL K III DO 05/15/20 Reported Medications Latanoprost (XALATAN) 2.5 Ml Drops, 1 DROP EACHEYE QHS for galucoma , #2.5 ML 6 Refills 05/12/20 Donepezil Hcl (DONEPEZIL HCL) 10 Mg Tablet, 1 TAB PO DAILY for memory , #90 TAB 1 Refill 05/12/20 Brinzolamide/Brimonid Tart (SIMBRINZA 1%-0.2% EYE DROPS) 8 Ml Drops.susp, 8 ML OP BID for glaucoma , DROP 05/12/20 CASTLE,NIAL K III DO May 15, 2020 11:30
[2020-05-15] MEDS: MECLIZINE HCL 12.5 MG TABLET. PO PRN (11:43)
[2020-05-15] MEDS: ASPIRIN ENTERIC COATED 81 MG TABLET.DR. PO SCH (11:43)
[2020-05-15] MEDS: DONEPEZIL HCL 10 MG TABLET. PO SCH (11:44)
[2020-05-15] MEDS: amLODIPine BESYLATE 5 MG TABLET PO SCH (11:44)
--- NOTE | 2020-05-15 11:50 | PDOC ---
[employer] PROGRESS NOTE Date of Service DOS: DATE: 05/15/20 TIME: 11:49 Chief Complaint Chief Complaint Right side weakness Syncope History of Present Illness History of Present Illness 05/15/2020 Patient seen and examined She seems to be at her baseline We will go ahead and discharge to longterm 05/13/2020 Patient is seen and examined. Patient is able to sit comfortably. Discussed with her daughter about patient's condition. Her daughter wants the patient to try Statin even though patient has documented allergy with unknown reaction. Patient case's is discussed with RN and chart is review CT shows Partially calcified atherosclerotic plaque involving the greater than left cavernous sinus and subarachnoid internal carotid arteries resulting in a 50 to 69% stenosis on the right and less than 50% stenosis on the left. There is also mild atherosclerotic plaque involving the carotid bifurcations with less than 50% stenosis. Partially calcified atherosclerotic plaque involving the origin and distal aspects of the right vertebral artery, resulting in 50 to 69% stenosis of the origin and less than 50% stenosis within its distal aspect No evidence of arterial occlusion or aneurysm. Multilevel degenerative changes involving the cervical spine there is no acute osseous finding. 05/14/2020 Patient is seen and examined with her daughter in the room Patient is comfortable Patient's case is discussed with RN MRI finding 1. No acute intracranial finding. 2. Bilateral cerebral white matter changes, likely due to chronic small vessel disease. 3. Cerebral volume loss. Vitals/I&O Vitals/I&O: Vital Signs Date Time Temp Pulse Resp B/P (MAP) Pulse Ox O2 Delivery O2 Flow Rate FiO2 05/15/20 11:44 63 154/65 05/15/20 10:58 97.8 18 93 Room Air 97.8 I & O 05/14/20 05/14/20 05/15/20 15:00 23:00 07:00 Intake Total 550 ml 250 ml 500 ml Output Total 300 ml Balance 550 ml 250 ml 200 ml Physical Exam General: Alert, Oriented X3, Cooperative, mild distress, Other (Notice left fa ce drooping) Heart: Regular rate, Normal S1, Normal S2 Lungs: Clear, Other (No wheezes or crackles) Abdomen: Normal bowel sounds, No tenderness Extremities: No clubbing, No cyanosis Skin: No rashes, No significant lesion Assessment and Plan Assessmemt and Plan Discharge to longterm Comment Review of Relevant I have reviewed the following items [place] (where applicable) has been applied. Medications: Current Medications Medications (Trade) Dose Ordered Sig/Juhi Route PRN Reason Start Time Stop Time Status Last Admin Dose Admin Amlodipine Besylate (Norvasc) 2.5 mg DAILY PO 05/14/20 12:30 05/15/20 11:44 Simvastatin (Zocor) 10 mg QHS PO 05/14/20 21:00 05/14/20 20:52 Meclizine HCl (Antivert) 12.5 mg PRN Q6HRS PRN PO DIZZINESS 05/15/20 10:15 05/15/20 11:43 Justifications for Admission Other Justification MELISSA LAUREN III DO May 15, 2020 11:50
--- NOTE | 2020-05-15 11:55 | DS ---
DATE OF DISCHARGE: 05/15/2020 ADMISSION DIAGNOSIS: Stroke symptoms. DISCHARGE DIAGNOSES: Resolving transient ischemic attack or mini stroke, history of previous deep venous thrombosis, hyperlipidemia, asthma, hypothyroidism, cholecystectomy, hysterectomy, glaucoma, early dementia. CONSULTATIONS: Neurology and Physiatry. PROCEDURES: None. HOSPITAL COURSE: The patient is a pleasant elderly female who presented with weakness and stroke symptoms. She had a little left facial droop and a right arm weakness. She was admitted. We placed her on aspirin. Consulted Neurology. We did CAT scan, which did not show a stroke. MRI really did not confirm me stroke either. Clinically, she seems to have had a TIA. Her symptoms are resolving. I saw her and examined her this morning, she is more alert. She is moving her extremities better. The left facial droop is improving. Overall, she is doing great. We plan to discharge to a senior living. DISPOSITION: alf. ACTIVITY: As tolerated. DIET: Low sodium. MEDICATIONS: Please see the MRAD. We did place her on Tylenol p.r.n., amlodipine 2.5 every day, aspirin 81 a day, meclizine 12.5 every 6 hours p.r.n., and simvastatin 10 a day. We continued her home Simbrinza eyedrops and Aricept 10 a day, and Xalatan eyedrops. TOTAL TIME: 34 minutes. MELISSA LAUREN DO DR: LONNIE/dimitri JOB#: [id number] / [id number]
--- NOTE | 2020-05-15 14:29 | NUR ---
SS following up with discharge planning. Pt accepted at [facility], ; fax [phone], pending COVID19 test result. SS will continue to follow for discharge planning.
[2020-05-15 14:50] VITALS: BP_SYST 114; BP_SYST 179; BP_DIAS 58; BP_DIAS 97
[2020-05-15 19:15] VITALS: BP 136/64
[2020-05-15] MEDS: SIMVASTATIN 10 MG TABLET PO SCH (20:02)
[2020-05-15] MEDS: ENOXAPARIN 40 MG/0.4 ML SYRINGE. SQ SCH (20:02)
[2020-05-15 23:00] VITALS: BP 135/62
[2020-05-16 02:50] VITALS: BP 126/56
[2020-05-16 07:00] VITALS: BP 144/52
[2020-05-16] MEDS: DONEPEZIL HCL 10 MG TABLET. PO SCH (08:18)
[2020-05-16] MEDS: ASPIRIN ENTERIC COATED 81 MG TABLET.DR. PO SCH (08:18)
[2020-05-16] MEDS: MECLIZINE HCL 12.5 MG TABLET. PO PRN (08:18)
[2020-05-16] MEDS: amLODIPine BESYLATE 5 MG TABLET PO SCH (08:18)
[2020-05-16] MEDS ORDERED: LATANOPROST 0.005% OPHTH SOLUTION 2.5ML BOTTLE. OU SCH (09:00)
--- NOTE | 2020-05-16 09:01 | PDOC ---
PROGRESS NOTES Date of Service DATE: 05/16/20 TIME: 08:58 Subjective Subjective No new complaints. Objective Objective Vital Signs Date Time Temp Pulse Resp B/P (MAP) Pulse Ox O2 Delivery O2 Flow Rate FiO2 05/16/20 08:18 59 144/52 05/16/20 07:00 98.0 18 93 Room Air 98.0 05/15/20 14:50 4.0 Intake and Output 05/16/20 07:00 Intake Total 1280 ml Output Total 1450 ml Balance -170 ml Intake Oral 1280 ml Output Urine Total 1450 ml Stool Total 0 ml # Voids 3 Physical Exam Physical Exam She is alert,walking with roller walker under supervision with her dizziness controlled with meclizine. Plan Plan of Care Agree with plans for SNF transfer for a short period when medically stable. Comment Review of Relevant I have reviewed the following items [place] (where applicable) has been applied. Labs Laboratory Tests Test 05/15/20 12:05 SARS-CoV-2 Antigen (Rapid) Negative (NEGATIVE) Laboratory Tests Test 05/15/20 12:05 SARS-CoV-2 Antigen (Rapid) Negative (NEGATIVE) Medications Current Medications Aspirin (Ecotrin) 81 mg DAILYWBKFT PO Last administered on 05/16/20at 08:18; Start 05/12/20 at 21:00 Enoxaparin Sodium (Lovenox 40mg Syringe) 40 mg Q24H SQ Last administered on 05/15/20at 20:02; Start 05/12/20 at 21:00 Acetaminophen (Tylenol) 325 mg Q4HRS PRN PO MILD PAIN / TEMP > 100.3'F Last administered on 05/15/20at 11:43; Start 05/13/20 at 09:15 Simvastatin (Zocor) 5 mg QHS PO Last administered on 05/13/20at 20:37; Start 05/13/20 at 21:00; Stop 05/14/20 at 13:32; Status DC Donepezil HCl (Aricept) 10 mg DAILY PO Last administered on 05/16/20at 08:18; Start 05/14/20 at 09:00 Amlodipine Besylate (Norvasc) 2.5 mg DAILY PO Last administered on 05/16/20at 08:18; Start 05/14/20 at 12:30 Simvastatin (Zocor) 10 mg QHS PO Last administered on 05/15/20at 20:02; Start 05/14/20 at 21:00 Meclizine HCl (Antivert) 12.5 mg PRN Q6HRS PRN PO DIZZINESS Last administered on 05/16/20at 08:18; Start 05/15/20 at 10:15 Latanoprost (Xalatan) 1 drop DAILY OU Last administered on 05/16/20at 08:18; Start 05/16/20 at 09:00 Active Scripts Active Acetaminophen 325 Mg Tablet 325 Mg PO Q4HRS PRN 30 Days Meclizine Hcl 12.5 Mg Tablet 12.5 Mg PO PRN Q6HRS PRN 90 Days Aspirin Ec (Aspirin) 81 Mg Tablet.dr 81 Mg PO DAILYWBKFT Amlodipine Besylate 5 Mg Tablet 2.5 Mg PO DAILY 90 Days Simvastatin 10 Mg Tablet 10 Mg PO QHS 90 Days Reported Xalatan (Latanoprost) 2.5 Ml Drops 1 Drop EACHEYE QHS Donepezil Hcl 10 Mg Tablet 1 Tab PO DAILY Simbrinza 1%-0.2% Eye Drops (Brinzolamide/Brimonid Tart) 8 Ml Drops.susp 8 Ml OP BID Vitals/I & O Vital Sign - Last 24 Hours 05/15/20 05/15/20 05/15/20 05/15/20 10:58 11:44 14:50 19:15 Temp 97.8 97.8 97.9 97.8 97.8 97.9 Pulse 63 63 60 71 Resp 18 18 18 B/P (MAP) 154/65 (94) 154/65 114/58 (76) 136/64 (88) Pulse Ox 93 94 93 O2 Delivery Room Air Nasal Cannula Room Air O2 Flow Rate 4.0 05/15/20 05/15/20 05/16/20 05/16/20 19:20 23:00 02:50 07:00 Temp 98.1 98.0 98.0 98.1 98.0 98.0 Pulse 62 62 59 Resp 20 18 18 B/P (MAP) 135/62 (86) 126/56 (79) 144/52 (82) Pulse Ox 93 93 93 O2 Delivery Room Air Room Air Room Air Room Air 05/16/20 08:18 Pulse 59 B/P (MAP) 144/52 Intake and Output 05/15/20 05/15/20 05/16/20 15:00 23:00 07:00 Intake Total 800 ml 180 ml 300 ml Output Total 300 ml 950 ml 200 ml Balance 500 ml -770 ml 100 ml Justifications for Admission Other Justification JASPREET LOPEZ MD May 16, 2020 09:01
--- NOTE | 2020-05-16 10:07 | PDOC ---
PROGRESS NOTES Date of Service DATE: 05/16/20 TIME: 10:06 Assessment No stroke, transient ischemic attack, nor "mini stroke." She just fell, we do not know for sure why Fall with concussion Right shoulder and hip pain causing pseudo right hemiparesis, x-rays negative Atherosclerotic disease of both carotid arteries, right vertebral, intracranially, not surgically significant Cervical spine multilevel degenerative change, not a surgery candidate Superficial thrombophlebitis, venous Doppler studies negative Plan Management of thrombophlebitis per internal medicine Physiatry consult Rehabilitation modalities Aspirin Rechallenge with statin, she has been intolerant in the past Okay for SNU transfer anytime Follow-up with me as needed Subjective Right leg feels better Objective Vital Signs Date Time Temp Pulse Resp B/P (MAP) Pulse Ox O2 Delivery O2 Flow Rate FiO2 05/16/20 08:18 59 144/52 05/16/20 08:00 Room Air 4.0 05/16/20 07:00 98.0 18 93 98.0 Intake and Output 05/16/20 07:00 Intake Total 1280 ml Output Total 1450 ml Balance -170 ml Intake Oral 1280 ml Output Urine Total 1450 ml Stool Total 0 ml # Voids 3 PHYSICAL EXAM Alert. Oriented to time, place and person. PERRL. EOMI. CN: no focal findings. Muscle tone: normal. Muscle strength: Giveaway weakness due to pain in right hip and shoulder, limited right shoulder range of motion DTR: 1+ Plantar reflex: Flexor Gait: not examined in bed. Sensory exam: no abnormal findings. No cerebellar signs elicited. Review of Relevant I have reviewed the following items [place] (where applicable) has been applied. Labs Laboratory Tests Test 05/15/20 12:05 SARS-CoV-2 Antigen (Rapid) Negative (NEGATIVE) Laboratory Tests Test 05/15/20 12:05 SARS-CoV-2 Antigen (Rapid) Negative (NEGATIVE) Medications Current Medications Aspirin (Ecotrin) 81 mg DAILYWBKFT PO Last administered on 05/16/20at 08:18; Start 05/12/20 at 21:00 Enoxaparin Sodium (Lovenox 40mg Syringe) 40 mg Q24H SQ Last administered on at 20:02; Start 05/12/20 at 21:00 Acetaminophen (Tylenol) 325 mg Q4HRS PRN PO MILD PAIN / TEMP > 100.3'F Last administered on 05/15/20at 11:43; Start 05/13/20 at 09:15 Simvastatin (Zocor) 5 mg QHS PO Last administered on 05/13/20at 20:37; Start 05/13/20 at 21:00; Stop 05/14/20 at 13:32; Status DC Donepezil HCl (Aricept) 10 mg DAILY PO Last administered on 05/16/20at 08:18; Start 05/14/20 at 09:00 Amlodipine Besylate (Norvasc) 2.5 mg DAILY PO Last administered on 05/16/20at 08:18; Start 05/14/20 at 12:30 Simvastatin (Zocor) 10 mg QHS PO Last administered on 05/15/20at 20:02; Start 05/14/20 at 21:00 Meclizine HCl (Antivert) 12.5 mg PRN Q6HRS PRN PO DIZZINESS Last administered on 05/16/20at 08:18; Start 05/15/20 at 10:15 Latanoprost (Xalatan) 1 drop DAILY OU Last administered on 05/16/20at 08:18; Start 05/16/20 at 09:00 Active Scripts Active Acetaminophen 325 Mg Tablet 325 Mg PO Q4HRS PRN 30 Days Meclizine Hcl 12.5 Mg Tablet 12.5 Mg PO PRN Q6HRS PRN 90 Days Aspirin Ec (Aspirin) 81 Mg Tablet.dr 81 Mg PO DAILYWBKFT Amlodipine Besylate 5 Mg Tablet 2.5 Mg PO DAILY 90 Days Simvastatin 10 Mg Tablet 10 Mg PO QHS 90 Days Reported Xalatan (Latanoprost) 2.5 Ml Drops 1 Drop EACHEYE QHS Donepezil Hcl 10 Mg Tablet 1 Tab PO DAILY Simbrinza 1%-0.2% Eye Drops (Brinzolamide/Brimonid Tart) 8 Ml Drops.susp 8 Ml OP BID Vitals/I & O Vital Sign - Last 24 Hours 05/15/20 05/15/20 05/15/20 05/15/20 10:58 11:44 14:50 19:15 Temp 97.8 97.8 97.9 97.8 97.8 97.9 Pulse 63 63 60 71 Resp 18 18 18 B/P (MAP) 154/65 (94) 154/65 114/58 (76) 136/64 (88) Pulse Ox 93 94 93 O2 Delivery Room Air Nasal Cannula Room Air O2 Flow Rate 4.0 05/15/20 05/15/20 05/16/20 05/16/20 19:20 23:00 02:50 07:00 Temp 98.1 98.0 98.0 98.1 98.0 98.0 Pulse 62 62 59 Resp 20 18 18 B/P (MAP) 135/62 (86) 126/56 (79) 144/52 (82) Pulse Ox 93 93 93 O2 Delivery Room Air Room Air Room Air Room Air 05/16/20 05/16/20 08:00 08:18 Pulse 59 B/P (MAP) 144/52 O2 Delivery Room Air O2 Flow Rate 4.0 Intake and Output 05/15/20 05/15/20 05/16/20 15:00 23:00 07:00 Intake Total 800 ml 180 ml 300 ml Output Total 300 ml 950 ml 200 ml Balance 500 ml -770 ml 100 ml Justicifation of Admission Dx: Justifications for Admission: Justification of Admission Dx: N/A ZULEIMA PERRY MD May 16, 2020 10:07
--- NOTE | 2020-05-16 10:12 | NUR ---
SS following up with discharge planning. SS reviewed pt chart and discussed with pt RN. Pt is currently on room air. COVID19 negative. PT/OT recommended half-way unit. Pt accepted at [facility], ; fax [phone]. Discharge orders received for [facility]. Pt will discharge today and go to [facility] between 1100 and 1130. Pt's family to provide transportation. Pt, pt's RN, and pt's daughter notified.
--- NOTE | 2020-05-16 10:32 | PDOC ---
[facility] PROGRESS NOTE Date of Service DOS: DATE: 05/16/20 TIME: 10:31 Chief Complaint Chief Complaint Right side weakness Syncope History of Present Illness History of Present Illness 05/16/2020 Patient seen and examined Discussed with case management Discussed with RN Patient probably at her baseline The plan is to discharge this afternoon to [facility] in [place] 05/15/2020 Patient seen and examined She seems to be at her baseline We will go ahead and discharge to [facility] 05/13/2020 Patient is seen and examined. Patient is able to sit comfortably. Discussed with her daughter about patient's condition. Her daughter wants the patient to try Statin even though patient has documented allergy with unknown reaction. Patient case's is discussed with RN and chart is review CT shows Partially calcified atherosclerotic plaque involving the greater than left cavernous sinus and subarachnoid internal carotid arteries resulting in a 50 to 69% stenosis on the right and less than 50% stenosis on the left. There is also mild atherosclerotic plaque involving the carotid bifurcations with less than 50% stenosis. Partially calcified atherosclerotic plaque involving the origin and distal aspects of the right vertebral artery, resulting in 50 to 69% stenosis of the origin and less than 50% stenosis within its distal aspect No evidence of arterial occlusion or aneurysm. Multilevel degenerative changes involving the cervical spine there is no acute osseous finding. 05/14/2020 Patient is seen and examined with her daughter in the room Patient is comfortable Patient's case is discussed with RN MRI finding 1. No acute intracranial finding. 2. Bilateral cerebral white matter changes, likely due to chronic small vessel disease. 3. Cerebral volume loss. Vitals/I&O Vitals/I&O: Vital Signs Date Time Temp Pulse Resp B/P (MAP) Pulse Ox O2 Delivery O2 Flow Rate FiO2 05/16/20 08:18 59 144/52 05/16/20 08:00 Room Air 4.0 05/16/20 07:00 98.0 18 93 98.0 I & O 05/15/20 05/15/20 05/16/20 15:00 23:00 07:00 Intake Total 800 ml 180 ml 300 ml Output Total 300 ml 950 ml 200 ml Balance 500 ml -770 ml 100 ml Physical Exam General: Alert, Oriented X3, Cooperative, mild distress, Other (Notice left face drooping) Heart: Regular rate, Normal S1, Normal S2 Lungs: Clear, Other (No wheezes or crackles) Abdomen: Normal bowel sounds, No tenderness Extremities: No clubbing, No cyanosis Skin: No rashes, No significant lesion Labs Labs: Laboratory Tests Test 05/15/20 12:05 SARS-CoV-2 Antigen (Rapid) Negative (NEGATIVE) Assessment and Plan Assessmemt and Plan 1. Fall with concussion per neurologist 2. Acute TIA 3. Bilateral Carotid Stenosis 4. Stroke Plan: Probable discharge to [facility] later today for now continue the following; 1. Continue PT/OT 2. Continue speech therapy 3. Continue cardiac monitoring 4. DVT prophylaxis 5. Full code 6. Appreciate neurology input Comment Review of Relevant I have reviewed the following items [place] (where applicable) has been applied. Medications: Current Medications Medications (Trade) Dose Ordered Sig/Juhi Route PRN Reason Start Time Stop Time Status Last Admin Dose Admin Latanoprost (Xalatan) 1 drop DAILY OU 05/16/20 09:00 05/16/20 08:18 Justifications for Admission Other Justification MELISSA LAUREN III DO May 16, 2020 10:32
[2020-05-16 11:00] VITALS: BP 116/58
--- NOTE | 2020-05-16 11:20 | NUR ---
DISCHARGED PATIENT TO [facility]. REPORT GIVEN TO A NURSE AT FACILITY. PIV AND HEART MONITOR REMOVED. PATIENT OFF UNIT PER WHEELCHAIR INTO A PRIVATE VEHICLE. FAMILY WANTED TO PROVIDE TRANSPORTATION.
== END 2020-05-16 11:33 | DRG 69 ==
LOC: 2 NORTH 17:39
PROVIDERS: ADMIT Internal Medicine; ATTEND Internal Medicine
DX: G45.9 Transient cerebral ischemic attack, unspecified (principal); G81.91 Hemiplegia, unspecified affecting right dominant side; E44.0 Moderate protein-calorie malnutrition; E03.9 Hypothyroidism, unspecified; E78.5 Hyperlipidemia, unspecified; F03.90 Unspecified dementia, unspecified severity, without behavioral disturbance, psychotic disturbance, mood disturbance, and anxiety; G62.9 Polyneuropathy, unspecified; I10 Essential (primary) hypertension; I73.9 Peripheral vascular disease, unspecified; J45.909 Unspecified asthma, uncomplicated; M17.0 Bilateral primary osteoarthritis of knee; M47.812 Spondylosis without myelopathy or radiculopathy, cervical region; M50.30 Other cervical disc degeneration, unspecified cervical region; M75.91 Shoulder lesion, unspecified, right shoulder; R29.810 Facial weakness; K21.9 Gastro-esophageal reflux disease without esophagitis; S06.0X0A Concussion without loss of consciousness, initial encounter; W18.30XA Fall on same level, unspecified, initial encounter; E66.9 Obesity, unspecified; I80.9 Phlebitis and thrombophlebitis of unspecified site; Z79.82 Long term (current) use of aspirin; Z82.3 Family history of stroke; Z86.718 Personal history of other venous thrombosis and embolism; Z86.73 Personal history of transient ischemic attack (TIA), and cerebral infarction without residual deficits; Z90.710 Acquired absence of both cervix and uterus; Z20.822 Contact with and (suspected) exposure to COVID-19; Z88.1 Allergy status to other antibiotic agents; Z88.0 Allergy status to penicillin; Z88.8 Allergy status to other drugs, medicaments and biological substances; Z90.49 Acquired absence of other specified parts of digestive tract; Y93.89 Activity, other specified; Y92.89 Other specified places as the place of occurrence of the external cause; Y99.8 Other external cause status; Z68.33 Body mass index [BMI] 33.0-33.9, adult
CPT/HCPCS: 36415; 70551; 73030; 73502; 80053; 85025; 87426; 93971; J1650; U0003; 92610-GN; 97110-GO; 97110-GP; 97116-GP; 97530-GO; 97535-GO; G0378; J8597